=== PATIENT | female | born 1985 | race Caucasian/White ===

== ENCOUNTER → 2017-06-12 | Outpatient (CLI) | payer OTHER | LOC: FIMAGING 14:57 | PROVIDERS: ATTEND Specialist | DX: Z09 Encounter for follow-up examination after completed treatment for conditions other than malignant neoplasm (principal); N20.1 Calculus of ureter ==

== ENCOUNTER 2017-06-15 05:55 | Day surgery (SDC) | payer OTHER ==
[2017-06-15] MEDS ORDERED: levOFLOXACIN 500 MG/DEXTROSE 100 ML IV ONE (06:43)
[2017-06-15] MEDS ORDERED: LR 1,000 ML IV ONE (06:58)
[2017-06-15] MEDS ORDERED: IOPAMIDOL (ISOVUE-300) 150 ML BTL ONE (07:00)
[2017-06-15 07:07] VITALS: RESP 16
[2017-06-15] MEDS ORDERED: MIDAZOLAM 2 MG/2 ML VIAL IVP ONE (07:14)
--- NOTE | 2017-06-15 07:14 | PDANEPAE ---
ANE History of Present Illness 32 year old female with renal stones presents for cystoscopy/ureteroscopy & laser treatment of renal stones. ANE Past Medical History - Cardiovascular History Hx Hypertension: No Hx Arrhythmias: Yes Hx Chest Pain: No Hx Coronary Artery / Peripheral Vascular Disease: No Hx CHF / Valvular Disease: No Hx Palpitations: No Cardiovascular History Comment: college hx SVT - Pulmonary History Hx COPD: No Hx Asthma/Reactive Airway Disease: No Hx Recent Upper Respiratory Infection: No Hx Oxygen in Use at Home: No Hx Sleep Apnea: No Sleep Apnea Screening Result - Last Documented: Negative - Neurologic History Hx Cerebrovascular Accident: No Hx Seizures: No Hx Dementia: No - Endocrine History Hx Diabetes: No Hypothyroid: Yes Hyperthyroid: No Obesity: no Endocrine History Comment: 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 - Renal History Hx Renal Disorders: Yes Renal History Comment: KIDNEY STONES - Liver History Hx Hepatic Disorders: No - Neurological & Psychiatric Hx Hx Neurological and Psychiatric Disorders: No - Cancer History Hx Cancer: Yes Cancer History Comment: CHEST SQUAMOUS CELL SKIN CANCER REMOVED AGE 15 - Congenital Disorder History Hx Congenital Disorders: No - GI History Hx Gastrointestinal Disorders: Yes Gastrointestinal History Comment: DIVERTICULITIS, COLITIS - Surgical History Prior Surgeries: appy, d & c, right elbow fx pin and plate, ANE Review of Systems Review of systems is: negative Review of Systems: - Exercise capacity Exercise capacity: >=4 METS METS (RN): 5 METS ANE Patient History - Allergies Allergies/Adverse Reactions: Penicillins Allergy (Verified 06/15/17 06:44) - Home Medications Home medications: home medication list seen and reviewed Home Medications: Flomax 06/15/17 [Last Taken 06/14/17 13:00] IBUPROFEN 06/15/17 [Last Taken 06/14/17 20:00] [place] 5/325 (*) 06/15/17 [Last Taken 06/13/17] oxyCODONE CR 06/15/17 [Last Taken 06/14/17 22:00] - Anes Hx Anes Hx: no prior problems - Smoking Hx Smoking Status: Former smoker - Alcohol Use Alcohol Use: Rarely - Family Anes Hx Family Anes Hx: neg - N/A ANE Labs/Vital Signs - Vital Signs Vital Signs: reviewed preoperatively; see RN documention for details Blood Pressure: 109/73 Heart Rate: 56 Respiratory Rate: 16 O2 Sat (%): 95 Height: 172.72 cm Weight: 83.915 kg ANE Physical Exam - Airway Neck exam: FROM Mallampati Score: Class 2 Mouth exam: normal dental/mouth exam - Pulmonary Pulmonary: no respiratory distress - Cardiovascular Cardiovascular: regular rate and rhythym - ASA Status ASA Status: II ANE Anesthesia Plan Anesthesia Plan: general endotracheal anesthesia Total IV Anesthesia: No
[2017-06-15] MEDS ORDERED: PROPOFOL 200 MG/20 ML VIAL ONE (07:17)
[2017-06-15] MEDS ORDERED: fentaNYL 100 MCG/2 ML INJ ONE ×2 (07:18→09:27)
[2017-06-15] MEDS ORDERED: ONDANSETRON 4 MG/2 ML VIAL ONE (08:14)
[2017-06-15] MEDS ORDERED: DEXAMETHASONE 4 MG/ML VIAL ONE (08:14)
[2017-06-15] MEDS ORDERED: ROCURONIUM 50 MG/5 ML VIAL ONE (08:47)
[2017-06-15] MEDS ORDERED: SUGAMMADEX SODIUM 200 MG/2 ML VIAL IVP ONE ×2 (08:47)
[2017-06-15] MEDS ORDERED: KETOROLAC 30 MG/1 ML SDV ONE (08:52)
[2017-06-15] MEDS: LIDOCAINE 2% JELLY 20 ML (UROJECT) ONE ×2 (08:55→08:56)
--- NOTE | 2017-06-15 09:09 | PDHPUP ---
History & Physical Update H&P update statement: This history and physical update is based on an assessment of the patient which was completed after admission or registration (within 24 hours), but prior to the surgery/procedure. H&P update: no change in patient's condition since H&P completed
--- NOTE | 2017-06-15 09:11 | POSTOPPROG ---
Post Op Note Date of Operation: 06/15/17 Surgeon: Daisy Noel (# [id number]) Anesthesia: LMA Pre-op Diagnosis: Right UPJ calculus Post-op Diagnosis: Right UPJ calculus Procedure: Cysto, Right RGP, ureteroscopy w/ holmium laser lithotripsy, stent placemen Findings: See op note Inf/Abcess present in the surg proc area at time of surgery?: No EBL: Minimal Complications: None Drains: Other (4.7 Fr. x 24 cm right ureteral stent) Specimen(s): None
[2017-06-15] MEDS ORDERED: LR 500 ML IV PRN (09:13)
[2017-06-15] MEDS ORDERED: HYDROCODONE/APAP 5/325 TAB PO PRN (09:13)
[2017-06-15] MEDS ORDERED: NALOXONE HCL 0.4 MG/ML INJ IVP PRN (09:13)
[2017-06-15] MEDS ORDERED: ONDANSETRON 4 MG/2 ML VIAL IVP PRN (09:13)
[2017-06-15] MEDS: fentaNYL 100 MCG/2 ML INJ IVP PRN ×2 (09:30→10:06)
[2017-06-15] MEDS ORDERED: PHENAZOPYRIDINE HCL 200 MG TAB PO SCH (09:45)
--- NOTE | 2017-06-15 09:55 | GPN ---
[f rep st] PROCEDURE NOTE DATE OF PROCEDURE: 06/15/2017 PREOPERATIVE DIAGNOSIS: Symptomatic right ureteropelvic junction calculus. POSTOPERATIVE DIAGNOSIS: Symptomatic right ureteropelvic junction calculus. NAME OF PROCEDURES: 1. Cystourethroscopy, right retrograde pyelography. 2. Right ureteroscopy and nephroscopy with holmium laser calculus lithotripsy. 3. Right ureteral stent placement (4.7-Cam[place]onian by 24 cm). ANESTHESIA: Laryngeal mask. INDICATIONS: This 32-year-old woman was recently diagnosed with a symptomatic sizable right ureterop elvic junction calculus which she has been unable to pass spontaneously. She presents for operative management at this time. The indications for the procedures as well as potential risks and complicat ions, were discussed with the patient preoperatively. She appeared to understand, her questions were answered, and she wished to proceed. Written informed surgical consent was thereafter obtained. DESCRIPTION OF PROCEDURE: The patient was brought to the operating room and administered laryngeal m ask anesthesia. She was carefully placed in the dorsal lithotomy position on the cystoscopic table. The genital area was sterilely prepped with Betadine scrub and paint, then draped in the usual steri le fashion. Cystoscopy was performed with a 30-degree lens through a 22-Cameroonian sheath. Urethra was unremarkable. Bladder was normal. Ureteral orifices were normal in regard to shape and position bret ng the trigone. I used a 5-Cam[place]onian open-ended ureteral catheter to perform retrograde pyelography on the right side. This revealed a sizable filling defect at the ureteropelvic junction with [id number] proximal h ydronephrosis. I then passed a 0.035-inch hydrophilic guidewire up the right ureter with the aid of a 5-Cam[place]onian open-ended ureteral catheter and advanced the guidewire into the renal collecting system a s seen fluoroscopically. By this point, the calculus appeared to have probably migrated into the lois al collecting system as noted fluoroscopically. I dilated the entire length of the ureter distal to the initial location of the calculus with 2 separate inflations and deflations of a 10 cm balloon by maintaining a pressure of 16 atmospheres for about 4 minutes on each occasion. The balloon dilator a nd cystoscope were then removed while keeping the guidewire in place. Semi-rigid ureteroscopy was in itially performed. The ureteroscope was advanced all the way to the ureteropelvic junction. No calc ulus was seen. I decided to proceed with flexible ureteroscopy. A 0.035-inch Amplatz superstiff samreen dewire was advanced through the ureteroscope and passed into the renal collecting system. The ureter oscope was then withdrawn, thereby keeping [address]. Under fluoroscopic guidance, a 35 cm hydrophilic ureteral access sheath was advanced over the Amplatz guidewire until the proximal exte nt of the sheath was at the ureteropelvic junction. The inner obturator and Amplatz guidewire were t hen removed, thereby keeping the outer access sheath and secondary guidewire in place. Flexible uret eroscopy was then performed. The ureteroscope was advanced into the renal collecting system. I was able to identify the symptomatic calculus. A 200 micron holmium laser fiber was used to fragment the calculus into minute pieces. None of these were retrieved. I then examined the remainder of the ki dney, and no other stones were definitively seen. The ureteroscope and ureteral access sheath were t hen removed in tandem. The ureter was examined on the way out in a retrograde fashion and appeared r elatively unremarkable. The cystoscope was back loaded over the remaining guidewire, and a 4.7-Frenc h by 24 cm hydrophilic ureteral stent was advanced over the guidewire until it was properly positione d as seen fluoroscopically in the kidney and cystoscopically in the bladder. The bladder was then dr ained of all return which was relatively clear. The instruments were removed and 20 cc of 2% lidocai ne injected transurethrally for postoperative analgesic purposes. The patient was also given Toradol 30 mg IV by Anesthesia at the conclusion of the case. The patient was then awakened, transferred to her bed, then taken to recovery room. She tolerated the procedure well overall. ESTIMATED BLOOD LOSS: Minimal. COMPLICATIONS: None. SPECIMENS: None. FINDINGS: Ureteropelvic junction calculus, addressed as mentioned in the operative report. DISPOSITION: She was transferred to the recovery room in stable condition and will be discharged onc e meeting standard criteria with instructions to return to the office in approximately 2 weeks for ur eteral stent removal. /[id number]/MODL
--- NOTE | 2017-06-15 10:21 | POSTANESTH ---
Post Anesthetic Evaluation Cardiovascular Status: Normal, Stable, Similar to Pre-Op Cond Respiratory Status: Normal, Stable, Similar to Pre-op Cond. Level of Consciousness/Mental Status: Can Participate in Eval Pain Control: Adequate, Prn Tx Ordered Nausea/Vomiting Control: Adequate, Prn Tx Ordered Complications Possibly Related to Anesthesia: None Noted
[2017-06-15 10:26] VITALS: TEMP 97.9
[2017-06-15 11:08] VITALS: PULSE 53
[2017-06-15 11:12] VITALS: O2SAT 91
[2017-06-15 11:28] VITALS: BP 108/60
== END 2017-06-15 11:28 | disposition home or self-care (01) ==
LOC: FSGY 05:55
PROVIDERS: ATTEND Specialist
PROC: BT1DYZZ Fluoroscopy of Right Kidney, Ureter and Bladder using Other Contrast (ICD-10-PCS; 2017-06-15)
PROC: 0TF38ZZ Fragmentation in Right Kidney Pelvis, Via Natural or Artificial Opening Endoscopic (ICD-10-PCS; principal; 2017-06-15 07:15)
PROC: 0T768DZ Dilation of Right Ureter with Intraluminal Device, Via Natural or Artificial Opening Endoscopic (ICD-10-PCS; principal; 2017-06-15 07:15)
DX: N13.0 Hydronephrosis with ureteropelvic junction obstruction (principal); E03.9 Hypothyroidism, unspecified; Z87.891 Personal history of nicotine dependence; Z87.442 Personal history of urinary calculi; Z82.49 Family history of ischemic heart disease and other diseases of the circulatory system; Z88.0 Allergy status to penicillin
CPT/HCPCS: 52356; 76001; C1726; C1758; C1769; C1894; C2625; J1100; J1885; J1956; J2250; J2405; J2704; J3010; Q9967